=== PATIENT | male | born 1980 | race Caucasian/White ===

== ENCOUNTER 2023-11-19 09:24 | Day surgery (SDC) | payer OTHER ==
[~2023-11-19] VITALS: Ht 177.8 cm; Wt 86.2 kg
[2023-11-19] VITALS (12 sets, daily range): BP systolic 106–130; BP diastolic 65–83; PULSE 58–69; RESP 15–18
[2023-11-19] MEDS: 0.9%NACL 1000ML 1,000 ML IV ONE (11:32)
[2023-11-19] MEDS ORDERED: PROPOFOL 10 MG/ML 20ML VIAL IV ONE ×2 (11:58)
== END 2023-11-19 13:45 | disposition home or self-care (01) ==
LOC: DAH 09:24 → SUH 09:24
PROVIDERS: ATTEND Internal Medicine Gastroenterology
DX: R10.13 Epigastric pain (principal); K44.9 Diaphragmatic hernia without obstruction or gangrene; K21.00 Gastro-esophageal reflux disease with esophagitis, without bleeding; K31.89 Other diseases of stomach and duodenum; Z88.0 Allergy status to penicillin; Z86.010 Personal history of colon polyps
CPT/HCPCS: 43239; A4606; J2704; J7030; A4215; A4221; A4222; A4223; A4620; A4663; A7002; J3490

== ENCOUNTER 2024-10-09 22:09 | Emergency (ER) | payer SELFPAY ==
[~2024-10-09] VITALS: Ht 177.8 cm; Wt 81.6 kg
--- NOTE | 2024-10-09 22:53 | ERN ---
General Chief Complaint: Upper Extremity Pain/Injury Stated Complaint: RT ARM INJURY BICEP Time Seen by MD: 22:29 History of Present Illness Initial Comments Patient is a 44-year-old male with chronic right shoulder arthritis comes in with a torn right biceps after lifting a stove this morning. He has been trying to get into see an orthopedic surgeon through his insurance company for the last several weeks with success. He has no other constitutional symptoms. Timing/Duration: 4-6 hours Allergies: Coded Allergies: Penicillins (Unverified Allergy, Intermediate, 11/18/23) Past Medical History Past Medical History: No Pertinent History Past Surgical History: None Constitutional: (-) chills, (-) diaphoresis, (-) fever, (-) malaise, (-) weakness, (-) other documentation EENTM: (-) eye pain, (-) blurred vision, (-) tearing, (-) double vision, (-) ear pain, (-) ear discharge, (-) nose pain, (-) nose congestion, (-) throat pain, (-) Throat swelling, (-) mouth pain, (-) tooth pain, (-) mouth swelling, (-) other documentation Respiratory: (-) cough, (-) orthopnea, (-) short of breath, (-) stridor, (-) wheezing, (-) other documentation Cardiovascular: (-) chest pain, (-) edema, (-) palpitations, (-) syncope, (-) dyspnea on exertion, (-) other documentation Gastrointestinal/Abdominal: (-) nausea, (-) vomiting, (-) diarrhea, (-) abdominal pain, (-) abdominal distention, (-) constipation, (-) rectal bleeding, (-) dark stool/melena, (-) other documentation Genitourinary: (-) penile discharge, (-) dysuria, (-) frequency, (-) hematuria, (-) pain, (-) other documentation Musculoskeletal: (-) Neck pain, (-) back pain, (-) Flank Pain, (-) joint pain, (-) joint swelling, (-) muscle pain, (-) muscle stiffness, (-) gout, (-) other documentation Skin: (-) laceration, (-) contusion, (-) abrasion, (-) abscess, (-) rash, (-) change in color, (-) change in hair, (-) change in nails, (-) diaphoresis, (-) dryness, (-) other documentation Neuro: (-) altered mental status, (-) headache, (-) syncope, (-) paralysis, (-) numbness, (-) seizure, (-) pre-existing deficit, (-) tremors, (-) weakness, (-) dizziness, (-) slurred speech, (-) vertigo, (-) other documentation Physical Exam General Appearance: (+) mild distress Orientation: (+) oriented x 3 Head/Face Trauma: No Eye: right eye normal Fundi; bilateral eye normal inspection, bilateral eye PERRL Eyes Comment His right eye does not have full mobility. Ear, Nose, Throat: (+) hearing grossly normal, (+) normal ENT inspection, (+) moist mucous membraine Neck: (+) normal inspection, (+) supple, (+) full range of motion Respiratory: (+) chest non-tender, (+) lungs clear, (+) well ventilated Heart: (+) regular, (+) no gallop Gastrointestinal: (+) soft, (+) non-tender, (+) bowel sound present Extremities: (+) normal range of motion, (+) non-tender, (+) normal inspection, (+) no pedal edema, (+) no calf tenderness, (+) normal capillary refill, (+) pelvis stable, (+) calf tenderness, (+) inflammation, (+) pedal edema, (+) slow capillary refill, (+) swelling, (+) other Extremities Comment Right arm has the contracted biceps muscle belly proximally located next to his right elbow. The arm is in his sling for comfort. Distally neurovascular inta ct. MDM Patient has a proximal torn right biceps tendon. I have caught tested Dr. LINDA who will see him in his clinic on Friday. I will get an x-ray of the right shoulder to see how bad the arthritic changes are. Then I will discharge the patient with pain control. ED Course Orders Procedure Category Date Status Time Shoulder Comp 2+Vws Rt RAD 10/09/24 Logged 22:54 Vital Signs Date Time Temp Pulse Resp B/P (MAP) Pulse Ox O2 Delivery O2 Flow Rate FiO2 10/09/24 22:10 98.4 92 20 153/95 99 Room Air DX & DISP Disposition: Discharge Departure Impression: Primary Impression: Biceps tendon rupture, proximal Condition: Stable Scripts Ketorolac Tromethamine (Toradol) 10 Mg Tab 1 TAB PO Q6HPRN PRN for pain for 5 Days, #20 TAB 0 Refills Prov: MORRO LIZAMA MD 10/09/24 Cyclobenzaprine HCl (Flexeril) 10 Mg Tab 10 MG PO TID for muscle sstiffness, #14 TAB 0 Refills Prov: MORRO LIZAMA MD 10/09/24 Additional Instructions: [facility] Dr. Linda's office at [phone]. Referrals: KUSH THAYER MD (PCP) FANNY LINDA MD, GORDON K MD Oct 09, 2024 22:53
[2024-10-09] MEDS ORDERED: CYCL10TA16 PO (23:04)
[2024-10-09] MEDS ORDERED: KETO10 PO (23:04)
[2024-10-09 23:46] VITALS: BP 131/63; PULSE 78; RESP 20; TEMP 98.5; O2SAT 98
--- NOTE | 2024-10-10 08:30 | HMCIMG ---
SHOULDER COMP 2+VWS RT INDICATION: torn biceps tendon TECHNIQUE: SHOULDER COMP 2+VWS RT. FINDINGS AND IMPRESSION: No displaced fracture or dislocation is seen. Correlate clinically. There is no joint effusion or soft tissue swelling. No radiopaque foreign body is identified.
== END 2024-10-09 23:54 | disposition home or self-care (01) ==
LOC: EDH 22:09
DX: S46.211A Strain of muscle, fascia and tendon of other parts of biceps, right arm, initial encounter (principal); M19.011 Primary osteoarthritis, right shoulder; Z88.0 Allergy status to penicillin; X50.0XXA Overexertion from strenuous movement or load, initial encounter; Y93.89 Activity, other specified; Y92.89 Other specified places as the place of occurrence of the external cause; Y99.8 Other external cause status
CPT/HCPCS: 73030; 99283

== ENCOUNTER → 2025-02-11 | Outpatient (CLI) | payer OTHER ==
[~2025-02-11] MED LIST: CYCL10TA16 PO; GADOTERATE MEGLUMINE 10 MMOL/20 ML VIAL IV ONE; KETO10 PO
--- NOTE | 2025-02-13 18:58 | HMCIMG ---
EXAM: MR Abdomen with and without Intravenous Contrast. CLINICAL HISTORY: Patient evaluated for abnormal alpha-fetoprotein levels. TECHNIQUE: Multisequence, multiplanar magnetic resonance images of the abdomen with and without intravenous contrast. CONTRAST: Administered. COMPARISON: None provided. FINDINGS: LOWER THORAX: No pleural effusion. LIVER: Mild hepatomegaly with the right lobe measuring up to 19.4 cm craniocaudally. Rounded hepatic margins. Diffuse hepatic steatosis. GALLBLADDER AND BILE DUCTS: No gallstone. No biliary ductal dilatation. PANCREAS: No focal mass. No ductal dilatation. SPLEEN: Normal in size and signal. ADRENALS: Within normal limits. KIDNEYS: No hydronephrosis or focal renal mass. STOMACH AND BOWEL: Uncomplicated colonic diverticula. No acute bowel abnormality. LYMPH NODES: No pathologic lymphadenopathy. VASCULATURE: No abdominal aortic aneurysm. IMPRESSION: Mild hepatomegaly with rounded margins; liver parenchymal disease to be excluded. Diffuse hepatic steatosis. No focal hepatic lesions. /[place]
== END | disposition home or self-care (01) ==
LOC: RAH 13:09
PROVIDERS: ATTEND Internal Medicine Gastroenterology
DX: K76.0 Fatty (change of) liver, not elsewhere classified (principal); R16.0 Hepatomegaly, not elsewhere classified; K57.30 Diverticulosis of large intestine without perforation or abscess without bleeding; R77.2 Abnormality of alphafetoprotein
CPT/HCPCS: 74183; A9575